=== PATIENT | female | born 1950 | race Two or more races ===

== ENCOUNTER 2024-07-08 11:44 | Emergency (ER) | payer MEDICARE, OTHER ==
[~2024-07-08] VITALS: Ht 165.1 cm; Wt 72.6 kg
[2024-07-08] MEDS ORDERED: APIX5TAB PO (12:04)
[2024-07-08] MEDS ORDERED: HYDROCODONE/APAP 10-325 MG TABLET ONE (12:27)
[2024-07-08] MEDS: HYDROCODONE/APAP 10-325 MG TABLET PO ONE (12:30)
[2024-07-08] MEDS ORDERED: HYDR-3980 PO (12:46)
[2024-07-08 13:51] VITALS: BP 147/82; TEMP 97.8; O2SAT 96
== END 2024-07-08 13:12 | disposition home or self-care (01) ==
LOC: ER 11:49
DX: S52.572A Other intraarticular fracture of lower end of left radius, initial encounter for closed fracture (principal); E78.5 Hyperlipidemia, unspecified; Z79.01 Long term (current) use of anticoagulants; Z88.0 Allergy status to penicillin; W01.0XXA Fall on same level from slipping, tripping and stumbling without subsequent striking against object, initial encounter; Y93.89 Activity, other specified; Y92.89 Other specified places as the place of occurrence of the external cause; Y99.8 Other external cause status
CPT/HCPCS: 73100; A4606; A4663